=== PATIENT | male | born 1980 | race Caucasian/White ===

== ENCOUNTER 2016-05-14 23:37 | Emergency (ER) | payer SELFPAY ==
--- NOTE | ~2016-05-14 | EKG ---
PATIENT: VERO PERRY UNIT #: [id number] Ventricular Rate: 127 BPM Atrial Rate: 127 BPM P-R Interval: 126 ms QRS Duration: 82 ms Q-T Interval: 336 ms QTC Calculation(Bezet): 488 ms P [place]: 52 degrees Calculated R [place]: 54 degrees Calculated T [place]: 64 degrees Diagnosis Line: Sinus tachycardia Diagnosis Line: Nonspecific ST abnormality Diagnosis Line: Abnormal ECG Diagnosis Line: When compared with ECG of 07-MAY-2016 20:30, Diagnosis Line: No significant change was found Diagnosis Line: Confirmed by GISEL BECERRIL MD ([id number]) on Diagnosis Line: 05/15/2016 12:00:08 PM INTERPRETING MD: EMY
== END 2016-05-15 01:38 | disposition home or self-care (01) ==
LOC: CED 23:37
DX: T40.1X1A Poisoning by heroin, accidental (unintentional), initial encounter (principal); Y92.9 Unspecified place or not applicable
CPT/HCPCS: 82947; 93005; 99283; J2310